=== PATIENT | male | born 1985 | race African-American/Black ===

== ENCOUNTER 2016-07-15 02:25 | Emergency (ER) | payer OTHER ==
[~2016-07-15] VITALS: Ht 170.2 cm; Wt 68.0 kg
[2016-07-15 02:30] VITALS: BP 135/74; PULSE 66; RESP 16; TEMP 98.2; O2SAT 100
[2016-07-15 04:30] VITALS: BP 138/83; PULSE 74; RESP 16; O2SAT 99
[2016-07-15] MEDS ORDERED: TETANUS/DIPHTHERIA TOXOID ADULT 0.5 ML VIAL IM ONE (04:30)
[2016-07-15] MEDS ORDERED: IBUP-232 PO (04:50)
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
== END 2016-07-15 05:02 | disposition home or self-care (01) ==
LOC: PHED 02:25
DX: S60.411A Abrasion of left index finger, initial encounter (principal); Z23 Encounter for immunization; V49.49XA Driver injured in collision with other motor vehicles in traffic accident, initial encounter; Y99.0 Civilian activity done for income or pay
CPT/HCPCS: 90471; 90714